=== PATIENT | female | born 1965 | race Caucasian/White ===

== ENCOUNTER 2019-09-23 08:39 | Emergency (ER) | payer OTHER ==
[~2019-09-23] VITALS: Ht 175.3 cm; Wt 79.3 kg
[~2019-09-23 08:39] MED LIST: METO50TA82 PO
--- NOTE | 2019-09-23 08:57 | NUR ---
WALKED PT BACK TO ROOM. PT HAS CO OF BLOOD IN URINE, KIDNEY PAIN, DIFFICULTY VOIDING. SYMPTOMS STARTED SATURDAY. PT HAS CO GENERAL WEAKNESS, DENIES, SOB OR CP. PT GIVEN UA CUP TO OBTAIN SAMPLE. HX OF HTN
[2019-09-23] MEDS ORDERED: LISI1TAB23 PO (09:03)
[2019-09-23] MEDS ORDERED: VERA240C2 PO (09:03)
[2019-09-23 09:37] LABS: BASOPHILS # (AUTO) 0.01 x10^3/uL (0-0.1); BASOPHILS % (AUTO) 0 % (0-1); EOSINOPHILS # (AUTO) 0.22 x10^3/uL (0-0.4); EOSINOPHILS % (AUTO) 5 % (1-7); LYMPHOCYTES # (AUTO) 0.67 x10^3/uL (1-3.4); LYMPHOCYTES % (AUTO) 15 % (22-44); MD NO; MEAN CORPUSCULAR HEMOGLOBIN 30.6 pg (27.0-34.8); MEAN CORPUSCULAR HGB CONC 33.6 g/dL (32.4-35.8); MEAN CORPUSCULAR VOLUME 90.9 fL (80-100); MEAN PLATELET VOLUME 7.6 fL (7.4-10.4); MONOCYTES # (AUTO) 0.69 x10^3/uL (0.2-0.8); MONOCYTES % (AUTO) 15 % (2-9); NEUTROPHILS # (AUTO) 3.01 x10^3/uL (1.8-6.8); NEUTROPHILS % (AUTO) 65 % (42-75); PLATELET COUNT 218 x10^3/uL (130-400); RED BLOOD COUNT 4.31 x10^6/uL (3.82-5.3)
--- NOTE | 2019-09-23 09:44 | NUR ---
UA AND LABS COMPLETED. VSS. NO NEEDS AT THIS TIME
[2019-09-23 09:49] LABS: ALANINE AMINOTRANSFERASE 36 U/L (12-78); ALBUMIN 3.4 g/dL (3.4-5.0); ANION GAP 6 mmol/L (5-15); CALCIUM 8.8 mg/dL (8.5-10.1); CHLORIDE 108 mmol/L (98-107); CREATININE 0.73 mg/dL (0.55-1.02)
[2019-09-23 09:54] LABS: ALKALINE PHOSPHATASE 62 U/L (45-117); BILIRUBIN,TOTAL 0.5 mg/dL (0.2-1.0); TOTAL PROTEIN 6.7 g/dL (6.4-8.2)
[2019-09-23 10:04] LABS: MICROSCOPIC INDICATED
[2019-09-23 10:13] LABS: CULTURE INDICATED? YES
[2019-09-23 11:00] VITALS: BP 130/77
--- NOTE | 2019-09-23 11:27 | NUR ---
PT RESTING, FAMILY AT BEDSIDE. PLAN FOR CT. NO NEEDS AT THIS TIME
--- NOTE | 2019-09-23 12:29 | NUR ---
MD AT BEDSIDE DISCUSSING POC FOR DC.
== END 2019-09-23 12:48 | disposition home or self-care (01) ==
LOC: ED 10:55
DX: N10 Acute pyelonephritis (principal); K40.91 Unilateral inguinal hernia, without obstruction or gangrene, recurrent; N39.0 Urinary tract infection, site not specified; R31.9 Hematuria, unspecified; R16.0 Hepatomegaly, not elsewhere classified; F17.200 Nicotine dependence, unspecified, uncomplicated
CPT/HCPCS: 36415; 74176; 80053; 81001; 83690; 84703; 85025; 87077; 87086; 87186; 99284

== ENCOUNTER → 2020-04-29 | Outpatient (CLI) | payer OTHER ==
[~2020-04-29] MED LIST changes: +LISI1TAB23 PO; +VERA240C2 PO
== END | disposition home or self-care (01) ==
LOC: CFH 10:45
PROVIDERS: ATTEND Urology
DX: N20.0 Calculus of kidney (principal)
CPT/HCPCS: 74018